=== PATIENT | female | born 1975 | race Hispanic/Latino ===

== ENCOUNTER → 2017-10-11 | Outpatient (CLI) | payer OTHER ==
--- NOTE | 2017-10-11 23:09 | Diagnostic Imaging Report ---
EXAM: Abdominal Ultrasound INDICATION: Abdominal pain COMPARISON: None. TECHNIQUE: Transverse and longitudinal images of the right upper abdomen were obtained. FINDINGS: Liver: Size: 14.0 cm in the right midclavicular line, normal Appearance: Normal echogenicity, smooth contour Mass: No focal masses Spleen: Size: 11.6 cm in length, normal Echogenicity: Normal Mass: No focal masses Gallbladder: Stones/Sludge: Gallbladder lumen is entirely filled with hyperechoic material which shows posterior acoustic shadowing in multiple areas Wall: 0.5 cm Appearance: No pericholecystic fluid or hydrops. Sonographic Thomas's Sign: Negative Bile Ducts: Intrahepatic Ducts: No dilatation Extrahepatic Ducts: Common bile duct measures 0.2 cm, no dilatation Pancreas: Visualized portions of the pancreatic neck and proximal body are normal. Kidneys: Length: Right 10.5 cm Left 10.9 cm Echogenicity: Normal Collecting System: No hydronephrosis Stone: None Cyst/Mass: None Vessels: Aorta: Visualized portions are normal Inferior Vena Cava: Visualized portions are normal Main Portal Vein: 0.8 cm, normal size with hepatopetal flow. Free Fluid: No ascites or pleural effusion IMPRESSION: 1. Gallbladder lumen is entirely filled with combination of stones and sludge, with mild gallbladder wall thickening. No sonographic evidence of acute cholecystitis. Signed by: Dr. Gregory Moulton M.D. on 10/11/2017 11:05 PM
== END ==
LOC: US 14:46
PROVIDERS: ATTEND Family Medicine
DX: R10.9 Unspecified abdominal pain (principal)
CPT/HCPCS: 76700